=== PATIENT | male | born 1985 | race Caucasian/White ===

== ENCOUNTER 2019-06-18 20:46 | Emergency (ER) | payer BC ==
--- NOTE | 2019-06-18 21:28 | ED ---
HPI Diabetic - HPI Summary HPI Summary: 34 year old male presents with elevated blood sugar for past two days. He has been occasional headache and so he decided to check sugars. He states they were in the 300s 2 days ago and then he checked his sugar and it was over 400 on 2 occasions. He denies any chest pain or shortness breath. No urinary symptoms. No abdominal pain. no excess thirst. denies any symptoms currently. no past medical conditions. Does have family history of diabetes. - History Of Current Complaint Chief Complaint: EDGeneral Time Seen by Provider: 06/18/19 21:09 - Allergies/Home Medications Allergies/Adverse Reactions: Allergies Allergy/AdvReac Type Severity Reaction Status Date / Time No Known Allergies Allergy Verified 06/18/19 20:48 PMH/Surg Hx/FS Hx/Imm Hx Endocrine/Hematology History: Denies: Hx Anticoagulant Therapy Cardiovascular History: Reports: Hx Hypertension - not normally Denies: Other Cardiovascular Problems/Disorders Respiratory History: Denies: Other Respiratory Problems/Disorders Infectious Disease History: No Infectious Disease History: Denies: Traveled Outside the [place] in Last 30 Days - Family History Known Family History: Positive: Diabetes - Social History Alcohol Use: Weekly Substance Use Type: Reports: None Smoking Status (MU): Never Smoked Tobacco Review of Systems Negative: Fever Negative: Chest Pain Negative: Shortness Of Breath Negative: dysuria Positive: Headache All Other Systems Reviewed And Are Negative: Yes Physical Exam Triage Information Reviewed: Yes Vital Signs On Initial Exam: Initial Vitals Temp Pulse Resp BP Pulse Ox 98.6 F 65 18 165/116 98 06/18/19 20:48 06/18/19 20:48 06/18/19 20:48 06/18/19 20:48 06/18/19 20:48 Vital Signs Reviewed: Yes Appearance: Positive: Well-Appearing Skin: Positive: Warm, Dry Head/Face: Positive: Normal Head/Face Inspection Eyes: Positive: Normal, Conjunctiva Clear ENT: Positive: Pharynx normal Respiratory/Lung Sounds: Positive: Clear to Auscultation, Breath Sounds Present Cardiovascular: Positive: Normal, RRR Abdomen Description: Positive: Nontender, Soft Bowel Sounds: Positive: Present Musculoskeletal: Positive: Normal Neurological: Positive: Normal Psychiatric: Positive: Normal Diagnostics - Vital Signs Vital Signs Temp Pulse Resp BP Pulse Ox 06/18/19 20:48 98.6 F 65 18 165/116 98 - Laboratory Result Diagrams: 06/18/19 21:40 06/18/19 21:40 Lab Statement: Any lab studies that have been ordered have been reviewed, and results considered in the medical decision making process. Diabetic Course/Dx - Course Course Of Treatment: 34 year old male presents with elevated blood sugar for past two days. He has been occasional headache and so he decided to check sugars. He states they were in the 300s 2 days ago and then he checked his sugar and it was over 400 on 2 occasions. He denies any chest pain or shortness breath. No urinary symptoms. No abdominal pain. no excess thirst. denies any symptoms currently. no past medical conditions. Does have family history of diabetes. On exam has normal physical exam. finger stick glucose is 89. wbc 11.4. glucose is 97. no other abnormalities found on lab work. a1c is 5.4 so is not diabetic. will have follow up with primary. patient understand and agrees with plan. - Diagnoses Differential Dx: Hyperglycemia, Hyperosmolar State, New Onset Diabetes Provider Diagnoses: Encounter for medical screening examination, Hyperglycemia Discharge ED - Sign-Out/Discharge Documenting (check all that apply): Patient Departure - Discharge Plan Condition: Good Disposition: HOME Referrals: Ro Grimm MD [Primary Care Provider] - Additional Instructions: your sugars are normal here follow up with primary Return to ED if develop any new or worsening symptoms - Billing Disposition and Condition Condition: GOOD Disposition: Home - Attestation Statements Provider Attestation: I was available for consult. This patient was seen by the LEISA. The patient was not presented to, seen by, or examined by me. Duglas Pretty MD
[2019-06-18 21:48] LABS: ABS Basophils 0.1 10^3/ul (0-0.2); ABS Eosinophils 0.5 10^3/ul (0-0.6); ABS Lymphocytes 3.8 10^3/ul (1.0-4.8); ABS Monocytes 1.3 10^3/ul (0-0.8); ABS Neutrophils 5.8 10^3/ul (1.5-7.7); ABS Nucleated RBC 0.1 10^3/ul; Eosinophil % 4.4 %; Hematocrit 46 % (42-52); Hemoglobin 15.4 g/dL (14.0-18.0); Lymphocyte % 33.2 %; Mean Corpuscular HGB Conc 34 g/dL (31-36); Mean Corpuscular Hemoglobin 29 pg (27-31); Mean Corpuscular Volume 86 fL (80-94); Nucleated Red Blood Cells % 0.4; Platelet Count 286 10^3/uL (150-450); Red Blood Count 5.33 10^6 /uL (4.18-5.48); Red Cell Distribution Width 13 % (10-15); White Blood Count 11.4 10^3/uL (3.5-10.8)
[2019-06-18 22:03] LABS: Albumin 4.5 g/dL (3.2-5.2); Albumin/Globulin Ratio 1.5 (1-3); EGFR African American 135.9 (>60); EGFR Non-African American 112.3 (>60); Globulin 3.1 g/dL (2-4); Total Bilirubin 0.5 mg/dL (0.2-1.0); Total Protein 7.6 g/dL (6.4-8.9)
[2019-06-18 22:39] VITALS: BP 129/93
== END 2019-06-18 22:47 | disposition home or self-care (01) ==
LOC: ED 20:46
DX: R73.9 Hyperglycemia, unspecified (principal); R51 Headache
CPT/HCPCS: 36415; 80053; 83036; 85025; 99282